=== PATIENT | female | born 1935 | race Caucasian/White ===

== ENCOUNTER 2017-12-26 08:46 | Emergency (ER) | payer MEDICARE ==
[2017-12-26 09:51] LABS: CKMB 1.1 ng/mL (0-6.6); Troponin I 0.019 ng/mL (< 0.028)
[2017-12-26] MEDS ORDERED: Ketorolac Tromethamine 30 MG/ML VIAL ONE (09:51)
[2017-12-26 09:53] LABS: #Eosinphils 0.3 thou/uL (0.0-0.7); #Lymphocytes 1.9 thou/uL (1.20-3.40); #Monocytes 0.6 thou/uL (0.11-0.59); #Neutrophils 6.1 thou/uL (1.40-6.50); %Basophils 0.5 % (0.0-1.0); %Lymphocytes 21.3 % (21.0-51.0); %Monocytes 6.6 % (0.0-10.0); %Neutrophils 68.7 % (42.0-75.0); Hemoglobin 11.8 g/dL (12.0-16.0); Mean Corpuscular Hemoglobin 31.9 pg (27.0-31.0); Mean Corpuscular Volume 93.6 fl (81.0-99.0); Mean Platelet Volume 7.5 fL (7.4-10.4); Platelet Count 218 thou/uL (130-400); RBC Distribution Width 12.4 % (11.5-14.5); White Blood Cell (WBC) Count 8.9 thou/uL (4.8-10.8)
[2017-12-26 10:09] LABS: ALT (SGPT) 12 U/L (8-55); AST (SGOT) 10 U/L (5-34); Albumin 3.5 g/dL (3.4-4.8); Alkaline Phosphatase 79 U/L (40-150); Anion Gap 16 mmol/L (10-20); BUN (Urea Nitrogen) 29 mg/dL (9.8-20.1); Bilirubin, Total 0.3 mg/dL (0.2-1.2); Calc. Creatinine Clearance 0 mL/min (70-130); Calcium 9.4 mg/dL (7.8-10.44); Carbon Dioxide 22 mmol/L (23-31); Chloride 104 mmol/L (98-107); Estimated GFR-MDRD 42; Glucose 425 mg/dL (83-110); Protein, Total 6.5 g/dL (6.0-8.3); Sodium 137 mmol/L (136-145)
[2017-12-26] MEDS ORDERED: Insulin Regular 300 UNITS/3 ML VIAL ONE (10:22)
[2017-12-26 11:12] LABS: Clarity Clear (Clear)
[2017-12-26 11:13] LABS: Glucose, Urine (Dipstick) 500 mg/dL (Negative); Leukocyte Negative (Negative); Nitrite Negative (Negative); Protein, Urine (Dipstick) 100 mg/dL (Neg-Trace); Urobilinogen 0.2 mg/dL (0.2-1.0)
[2017-12-26 11:14] LABS: Bilirubin Small (Negative); Blood, Urine Negative (Negative)
[2017-12-26 11:26] LABS: Bacteria/HPF Rare-Few HPF (None Seen); Crystals/HPF None Seen HPF (Negative); Hyaline Casts/LPF NONE SEEN LPF (0-3 Hyaline); Other Casts/LPF None Seen LPF (0-3 Hyaline); Oval Fat Bodies/HPF None Seen HPF (None Seen); RBC/HPF None Seen HPF (0-3); Renal Epithelial None Seen HPF (0-3); Sperm/HPF None Seen HPF (None Seen); Squamous Epithelial 0-3 HPF (0-3); Transitional Epithelial NONE SEEN HPF (0-3); Trichomonas/HPF None Seen HPF (None Seen); WBC/HPF 0-3 HPF (0-3); Yeast-All Forms None Seen HPF (None Seen)
--- NOTE | 2017-12-26 12:14 | RAD ---
RADIOGRAPH CHEST 2 VIEWS: HISTORY: 82-year-old female status post acute chest trauma from fall. Left-sided chest pain. FINDINGS: There is cardiomegaly. There is no evidence of air space density, pulmonary edema, or pneumothorax. T here is no pleural effusion. Interstitial markings are prominent. IMPRESSION: 1. No acute pulmonary findings. 2. Cardiomegaly without congestive heart failure. 3. Probably chronic diffusely prominent interstitial markings. desi [] POS: [facility]
--- NOTE | 2017-12-26 12:15 | RAD ---
RADIOGRAPH LEFT RIBS 3 VIEWS: Date: 12/26/17 Time: 0919 hours HISTORY: 82-year-old female with traumatic left rib pain after fall. FINDINGS: Because of body habitus, the lower ribs are poorly visualized. No grossly displaced rib fracture is i dentified. IMPRESSION: No rib fracture identified. POS: [facility]
== END 2017-12-26 11:35 | disposition home or self-care (01) ==
LOC: BURERS 08:46
DX: S20.212A Contusion of left front wall of thorax, initial encounter (principal); E11.65 Type 2 diabetes mellitus with hyperglycemia; I10 Essential (primary) hypertension; E78.5 Hyperlipidemia, unspecified; R80.9 Proteinuria, unspecified; R01.1 Cardiac murmur, unspecified; Z79.84 Long term (current) use of oral hypoglycemic drugs; Z79.899 Other long term (current) drug therapy; W18.30XA Fall on same level, unspecified, initial encounter
CPT/HCPCS: 36416; 71046; 80053; 81003; 81015; 82553; 84484; 85025; 93005; 96361; 96374; 96375; J1815; J1885